=== PATIENT | male | born 1955 | race Caucasian/White ===

== ENCOUNTER → 2019-02-22 10:33 | Outpatient (CLI) | payer MEDICARE, SELFPAY ==
[2019-02-22 11:04] LABS: Basophils % 0.3 % (0.1-2.0); Eosinophils # 0.1 K/mm3 (0.0-0.4); Eosinophils % 1.1 % (0.1-12.0); Hematocrit 46.9 % (42.0-52.0); Hemoglobin 15.3 g/dL (14.1-18.0); Lymphocytes # 1.5 K/mm3 (0.7-4.5); Lymphocytes % 28.2 % (10-50); Mean Corpuscular HGB Conc 32.6 g/dL (31.8-35.4); Mean Corpuscular Hemoglobin 30.5 pg (27.0-31.2); Mean Corpuscular Volume 93.5 fl (80-94); Mean Platelet Volume 6.1 fl (7.4-10.4); Monocytes # 0.4 K/mm3 (0.1-1.0); Monocytes % 6.7 % (1.7-9.3); Neutrophils # 3.4 K/mm3 (1.8-7.8); Neutrophils % 63.7 % (37.0-80.0); Platelet Count 277 K/mm3 (142-424); Red Blood Count 5.01 M/mm3 (4.60-6.20); Red Cell Distribution Width 13.6 % (11.5-17.5); White Blood Count 5.3 K/mm3 (4.8-10.8)
[2019-02-22 11:57] LABS: Anion Gap 12.1 mEq/L (5-15); Blood Urea Nitrogen 15 mg/dL (7-18); Calcium 9.5 mg/dL (8.5-10.1); Carbon Dioxide 29 mmol/L (21.0-32.0); Chloride 104 mmol/L (98-107); Creatinine,Serum 1.21 mg/dL (0.70-1.30); Estimated Glomerular Filt Rate 60 ml/min (>60); GFR (African American) 73 ML/MIN (>60); Glucose 111 mg/dL (74-106); Potassium 4.1 mmoL/L (3.5-5.1); Sodium 141 mmol/L (136-145)
== END ==
PROVIDERS: Visit Provider Surgery
DX: K40.90 Unilateral inguinal hernia, without obstruction or gangrene, not specified as recurrent (principal)
CPT/HCPCS: 36415; 80048; 85025

== ENCOUNTER → 2019-03-09 09:47 | Outpatient (CLI) | payer MEDICARE, SELFPAY ==
--- NOTE | 2019-03-09 09:47 | CT_ITS ---
PROCEDURE: CT ABDOMEN PELVIS W CON CLINICAL HISTORY: left lower quad pain Left lower quadrant pain COMPARISON: No exams were available for comparison TECHNIQUE: 75 mL Optiray 350 Gastrografin p.o. Axial images obtained with sagittal and coronal reformats. All CT scans at the facility use one or more dose reduction, viz: automated exposure control, ma/kV adjustment per patient size (including targeted exams where dose is matched to indication, i.e. head), or iterative reconstruction technique. FINDINGS: Lung base images show coronary artery calcifications and a calcified granuloma in the right middle lobe. Normal heart size. Post cholecystectomy change. There is a moderate amount of retained colonic feces. The liver, spleen, adrenal glands, and pancreas have an unremarkable appearance. No renal or ureteral calculi. No hydronephrosis. No intestinal obstruction or free air. No evidence of appendicitis. There is moderate to severe thickening of the proximal sigmoid colon in the left lower quadrant with stranding of the pericolic fat consistent with diverticulitis. Contrast has not yet made it through the large bowel. There an unusual collection of gas within the sigmoid colon and may only be related to an unusual irregular appearance of the lumen of sigmoid colon. This could also represent a gas containing abscess within the wall of the sigmoid colon measuring 4 cm longitudinal and 1.4 cm transverse. Delayed imaging may be of further value once contrast has reached this region. No free intraperitoneal air is evident. There are small bilateral inguinal hernias which contain fat. There is mild thickening of the urinary bladder nonspecific but could be seen with cystitis or local inflammation. No acute bony findings. IMPRESSION: 1. Diverticulitis of the sigmoid colon. Unusual gas collection within the proximal sigmoid colon which may only be related to irregularity of the lumen with wall thickening versus a small intramural abscess. Consider follow-up once the contrast has made it through the large bowel for further evaluation. 2. Small bilateral inguinal hernias containing fat. 3. Possible cystitis Dictated by: Soy Jalloh MD 03/09/2019 14:59 Signed by: <Electronically signed by Soy Jalloh MD in [place]> 03/09/2019 14:59
[2019-03-09 10:17] LABS: Blood Urea Nitrogen 13 mg/dL (7-18); Estimated Glomerular Filt Rate 67 ml/min (>60); GFR (African American) 81 ML/MIN (>60)
== END ==
PROVIDERS: PCP Family Medicine; Visit Provider Surgery
DX: K40.20 Bilateral inguinal hernia, without obstruction or gangrene, not specified as recurrent (principal); K57.92 Diverticulitis of intestine, part unspecified, without perforation or abscess without bleeding
CPT/HCPCS: 36415; 74177; 82565; 84520; Q9967

== ENCOUNTER → 2019-03-09 10:00 | Outpatient (CLI) | payer MEDICARE, SELFPAY | PROVIDERS: Visit Provider Surgery | DX: Z01.818 Encounter for other preprocedural examination (principal) | CPT/HCPCS: 36415; 82565; 84520 ==

== ENCOUNTER → 2023-05-01 10:00 | Outpatient (CLI) | payer MEDICARE, SELFPAY ==
--- NOTE | 2023-05-01 10:01 | CT_ITS ---
FINAL REPORT CLINICAL HISTORY: left lower quad pain oral and iv COMPARISON: 03/09/2019 FINDINGS: Axial images through the pelvis were performed by computed tomography afther the administration of IV and oral contrast. Sagittal and coronal reconstruction images were performed. This study was performed with techniques to keep radiation doses as low as reasonably achievable (ALARA). Individualized dose reduction techniques using automated exposure control or adjustment of mA and/or kV according to the patient's size were employed. No acute fracture or dislocation identified. The appendix is normal. There is sigmoid diverticulosis. Mild urinary bladder wall thickening is seen which is likely inflammatory No free fluid or adenopathy is present. IMPRESSION: Mild urinary bladder wall thickening, likely inflammatory. Normal appendix. Reviewed, Interpreted and Dictated by Lars Laguerre III, MD Transcribed by Lety Siu Authenticated and [facility]
[2023-05-01 10:37] LABS: Blood Urea Nitrogen 17 mg/dl (9-20); Estimated Glomerular Filt Rate 60 ml/min (>60); GFR (African American) 72 ML/MIN (>60)
== END ==
PROVIDERS: PCP Family Medicine; Visit Provider Surgery
DX: R10.32 Left lower quadrant pain (principal)
CPT/HCPCS: 36415; 72193; 82565; 84520; Q9967

== ENCOUNTER 2025-05-26 12:20 | Outpatient (CLI) | payer MEDICARE, SELFPAY ==
--- OUTSIDE RECORDS SUMMARY | 2025-05-26 12:24 | XMS_ITS | Data Portability ---
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 Plan of Treatment Reminders Order Date Submit Date Provider Last Modified By Organization Details Last Modified Time Details Appointments None recorded . Lab PSA, total + free, serum or plasma 023 023 [facility], [address] [place] [address], [phone], 07:11:21 Referral None recorded . Procedures None recorded . Surgeries None recorded . Imaging None recorded . Medication Orders None recorded . Patient TargetsNo targets recorded. Patient Instructions Encounter Date Encounter Id Patient Instructions Last Modified By Organization Details Last Modified Time 03/04/2019 [id number] prostate biopsy: about this test [facility] Not available 03/08/2019 08:18:57 healthy together [facility] Not available 03/08/2019 08:18:57 at a long discussion today with the patient in regards to his elevated PSA. His PSA density and MRI are very reassuring and because of this we will follow conservatively with PSA free over total fraction in 4 months. We did talk about the potential need in the future for prostate biopsy. The patient is reluctant to have prostate biopsy. [facility] Not available 03/08/2019 08:19:36 Reason for Referral None Reported. Results Created Date Observation Date Name Description Value Unit Range Abnormal Flag Note LastModifiedBy Organization Detail LastModifiedTime 02/28/20 23 02/27/2023 PSA, TOTAL AND FREE prostate specific Ag 8.750 NG/mL 0.000- 4.400 high The % Free PSA ratio is usefu l as an aid in disti nguis raul prost ate cance r from benig n prost ate condi tions in men 50 years or older who have a digit al recta l exam that is not suspi cious for prost ate cance r and a Total PSA value in the range of 4.0 - 10.0. Pleas e notif y the lab at 258-4 150 withi n 24 hrs if add-o n testi ng of Free PSA is anaya ed. Test metho d is based on WHO-s tanda rdize d calib ratio n using the Lois Remi E801 grace zer. PSA resul ts by diffe rent test proce dures canno t be direc tly ornnie red with one anoth er. . Not Available [facility] [address] [place] [address], [phone], 02/27/2023 18:59:30 02/28/20 23 02/27/2023 PSA, TOTAL AND FREE free PSA 1.31 NG/mL normal Test metho d is based on WHO-s tanda rdize d calib ratio n using the Lois E801 grace zer. Free PSA resul ts by diffe rent test proce napoleon sahuo t be direc tly ronnie red with one anoth er. Not Available [facility] [address] [place] [address], [phone], 02/27/2023 18:59:30 02/28/20 23 02/27/2023 PSA, TOTAL AND FREE % free PSA 15 % normal ____ PSA ng/mL % FREE PSA Proba bilit y of Prost ate Cance r % ____ Less than 4.00 N/A 17% 4.0 - 10.0 0-10 56% 10-15 28% 15-20 20% 20-25 16% Great er than 25 8% Great er than 10.0 N/A 49% ____ Not Available [facility] [address] [facility], [place], [phone], 02/27/2023 18:59:30 04/02/20 19 02/04/2019 MRI, prost ate, w/wo contr ast No observ ation record ed. [address], [place], [address], 04/02/2019 16:10:46 03/30/20 23 03/28/2023 MRI, pelvi s, w/wo contr ast [facility] [address] [place] [address] [place] sanchez Name: JONAS sanchez : 1954 Elizabeth sanchez Orderi ng Provid er: EZRA HEALY [facility] EXAM DATE: 2022 EXAM: MR PELVIS ATTN PROSTA TE W/WO CONTRA ST CLINIC AL INFORM ATION: Elevat ed PSA. Negati ve prosta te MRI in 2019. TECHNI QUE: A baseli ne serum creati nine with eGFR was obtain ed prior to inject ion of contra st medium due to the patien ts risk factor s for KAYDEN. Calcul ated eGFR at time of exam was GRF 82 Tripla esperanza T2, axial DWI, ADC map, axial T1 pre- and dynami c postco ntrast -enhan diane images as well as axial T1 fat-sa t imagin g was perfor med after inject ion of 7.[address] (1 x 7.5 mL bottle of [facility] [address]- 325-01 ) IV. The patien t did not requir e sedati on for this exam. COMPAR LUIZ: Previo us MRI images are not availa ble for compar luiz. FINDIN GS: PROSTA TE SIZE MEASUR EMENTS : Prosta te dimens ions = 5.5 x 4.6 x 4.2 cm (T x AP x CC). QUALIT Y: Good PERIPH ERAL ZONE: Overal l, periph eral zone is normal in size and backgr ound signal charac terist ics. No suspic ious focal lesion is seen. TRANSI TION ZONE: Multip le, well deline ated encaps ulated nodule s are seen consis tent with BPH. A suspic ious focal lesion is seen as decibe d below. PI-RAD S catego ry = 4/5 locate d in left anteri or transi tion zone at the lower mid gland level. Measur ement = 14 mm. Seen best in image 17 of series 8001, 7006, 7007, and image 137 of series 29862. It is positi ve on T2 WI, ADC, DWI and DCE images . CAPSUL E AND NEIGHB ORING STRUCT URES: No capsul ar invasi on is identi fied. Neuro- vascul ar bundle s are normal bilate rally. Semina l vesicl es are normal . PELVIC LYMPH NODES: No pelvic lympha denopa thy. PELVIC BONES: No suspic ious osseou s lesion is seen. IMPRES PATTI: 1. Change s of BPH 2. PI RADS catego ry 4/5 lesion in the left anteri or transi tion zone as descri bed above. 3. No eviden ce of extra prosta tic extens ion. 4. Normal semina l vesicl es. Interp reted By: Fredy Simeon MD Electr onical ly Signed By: Fredy Simeon MD on 023 12:[email or web address] [facility] [address], [phone], 04/01/2023 10:21:57 04/15/20 23 03/28/2023 MRI, pelvi s, w/wo contr ast [address] [address] [place] NDUM #1 Pat[place] t Name: JONAS sanchez : 1954 Elizabeth sanchez Orderi ng Provid er: EZRA PEREZ EXAM DATE: 2022 EXAM: MR PELVIS ATTN PROSTA TE W/WO CONTRA ST ADDEND UM: At the reques t of the patien t Mr. Helm, outsid e prosta te MRI images of 019 were obtain ed and compar ed with the curren t examin ation of . Follow ing observ ations are made. 1. The suspic ious nodule seen on today' s examin ation in the left anteri or transi tion zone was presen t in the previo us examin ation also. Howeve r in the curren t examin ation, it has develo ped suspic ious imagin g featur es of T2 hyperi ntensi ty, diffus ion restri ction, and abnorm al enhanc ement, which were not presen t in the previo us examin ation. This change is worris ome for develo pment of malign ronal in a previo usly existi ng nodule in this area. 2. There is a right inguin al hernia repair mesh which is not close to the prosta te gland. 3. No hernia repair change s are seen on the left side. 4. I person ally called Mr. Helm on at 12:20 PM and discus sed the above findin gs with him. He inform ed me that he is going to get an outsid e second opinio n becaus e of a long and compli cated histor y of previo us hernia repair s. Interp reted By: Fredy Simeon MD Electr onical ly Signed By: Fredy Simeon MD on 12:29 PM ORIGIN AL REPORT Patipedrito t Name: JONAS sanchez : 1954 Elizabeth sanchez Orderi ng Provid er: EZRA HEALY [facility] EXAM DATE: 2022 EXAM: MR PELVIS ATTN PROSTA TE W/WO CONTRA ST CLINIC AL INFORM ATION: Elevat ed PSA. Negati ve prosta te MRI in 2019. TECHNI QUE: A baseli ne serum creati nine with eGFR was obtain ed prior to inject ion of contra st medium due to the patien ts risk factor s for KAYDEN. Calcul ated eGFR at time of exam was GRF 82 Tripla esperanza T2, axial DWI, ADC map, axial T1 pre- and dynami c postco ntrast -enhan diane images as well as axial T1 fat-sa t imagin g was perfor med after inject ion of 7.[address] (1 x 7.5 mL bottle of [facility] [address]- 325-01 ) IV. The patien t did not requir e sedati on for this exam. COMPAR LUIZ: Previo us MRI images are not availa ble for compar luiz. FINDIN GS: PROSTA TE SIZE MEASUR EMENTS : Prosta te dimens ions = 5.5 x 4.6 x 4.2 cm (T x AP x CC). QUALIT Y: Good PERIPH ERAL ZONE: Overal l, periph eral zone is normal in size and backgr ound signal charac terist ics. No suspic ious focal lesion is seen. TRANSI TION ZONE: Multip le, well deline ated encaps ulated nodule s are seen consis tent with BPH. A suspic ious focal lesion is seen as decibe d below. PI-RAD S catego ry = 4/5 locate d in left anteri or transi tion zone at the lower mid gland level. Measur ement = 14 mm. Seen best in image 17 of series 8001, 7006, 7007, and image 137 of series 91238. It is positi ve on T2 WI, ADC, DWI and DCE images . CAPSUL E AND NEIGHB ORING STRUCT URES: No capsul ar invasi on is identi fied. Neuro- vascul ar bundle s are normal bilate rally. Semina l vesicl es are normal . PELVIC LYMPH NODES: No pelvic lympha denopa thy. PELVIC BONES: No suspic ious osseou s lesion is seen. IMPRES PATTI: 1. Change s of BPH 2. PI RADS catego ry 4/5 lesion in the left anteri or transi tion zone as descri bed above. 3. No eviden ce of extra prosta tic extens ion. 4. Normal semina l vesicl es. Interp reted By: Fredy Simeon MD Electr onical ly Signed By: Fredy Simeon MD on 023 12:07 PM [facility] [address] [place] [address], [phone], 04/16/2023 08:51:41 Result Notes Documentation Provider Name and Address Organization Details Recorded Time Mri, Pelvis, W/wo Contrast : [address] [address] Patient Name: JONAS HELM Patient : 1955 Patient Ordering Provider: EZRA GARCIA JR EXAM DATE: 03/28/2023 EXAM: MR PELVIS ATTN PROSTATE W/WO CONTRAST CLINICAL INFORMATION: Elevated PSA. Negative prostate MRI in 2019. TECHNIQUE: A baseline serum creatinine with eGFR was obtained prior to injection of contrast medium due to the patients risk factors for KAYDEN. Calculated eGFR at time of exam was GRF 82 Triplanar T2, axial DWI, ADC map, axial T1 pre- and dynamic postcontrast-enhanced images as well as axial T1 fat-sat imaging was performed after injection of 7.5 mL Gadavist (1 x 7.5 mL bottle of [facility] [address]-441-19) IV. The patient did not require sedation for this exam. COMPARISON: Previous MRI images are not available for comparison. FINDINGS: PROSTATE SIZE MEASUREMENTS: Prostate dimensions = 5.5 x 4.6 x 4.2 cm (T x AP x CC). QUALITY: Good PERIPHERAL ZONE: Overall, peripheral zone is normal in size and background signal characteristics. No suspicious focal lesion is seen. TRANSITION ZONE: Multiple, well delineated encapsulated nodules are seen consistent with BPH. A suspicious focal lesion is seen as decibed below. PI-RADS category = 4/5 located in left anterior transition zone at the lower mid gland level. Measurement = 14 mm. Seen best in image 17 of series 8001, 7006, 7007, and image 137 of series 39950. It is positive on T2 WI, ADC, DWI and DCE images. CAPSULE AND NEIGHBORING STRUCTURES: No capsular invasion is identified. Neuro-vascular bundles are normal bilaterally. Seminal vesicles are normal. PELVIC LYMPH NODES: No pelvic lymphadenopathy. PELVIC BONES: No suspicious osseous lesion is seen. IMPRESSION: 1. Changes of BPH 2. PI RADS category 4/5 lesion in the left anterior transition zone as described above. 3. No evidence of extra prostatic extension. 4. Normal seminal vesicles. Interpreted By: Danilo Simeon MD [facility] 04/01/2023 10:21:57 Mri, Pelvis, W/wo Contrast : [facility] [address] [place] [address] ADDENDUM #1 Patient Name: JONAS HELM Patient : 1955 Patient Ordering Provider: EZRA GARCIA JR EXAM DATE: 03/28/2023 EXAM: MR PELVIS ATTN PROSTATE W/WO CONTRAST ADDENDUM: At the request of the patient Mr. Helm, outside prostate MRI images of 02/04/2019 were obtained and compared with the current examination of 03/28/2023. Following observations are made. 1. The suspicious nodule seen on today's examination in the left anterior transition zone was present in the previous examination also. However in the current examination, it has developed suspicious imaging features of T2 hyperintensity, diffusion restriction, and abnormal enhancement, which were not present in the previous examination. This change is worrisome for development of malignancy in a previously existing nodule in this area. 2. There is a right inguinal hernia repair mesh which is not close to the prostate gland. 3. No hernia repair changes are seen on the left side. 4. I personally called Mr. Helm on 04/15/2023 at 12:20 PM and discussed the above findings with him. He informed me that he is going to get an outside second opinion because of a long and complicated history of previous hernia repairs. Interpreted By: Danilo Simeon MD ORIGINAL REPORT Patient Name: JONAS HELM Patient : 1955 Patient Ordering Provider: EZRA GARCIA JR EXAM DATE: 03/28/2023 EXAM: MR PELVIS ATTN PROSTATE W/WO CONTRAST CLINICAL INFORMATION: Elevated PSA. Negative prostate MRI in 2019. TECHNIQUE: A baseline serum creatinine with eGFR was obtained prior to injection of contrast medium due to the patients risk factors for KAYDEN. Calculated eGFR at time of exam was GRF 82 Triplanar T2, axial DWI, ADC map, axial T1 pre- and dynamic postcontrast-enhanced images as well as axial T1 fat-sat imaging was performed after injection of 7.5 mL Gadavist (1 x 7.5 mL bottle of [facility] [id number]) IV. The patient did not require sedation for this exam. COMPARISON: Previous MRI images are not available for comparison. FINDINGS: PROSTATE SIZE MEASUREMENTS: Prostate dimensions = 5.5 x 4.6 x 4.2 cm (T x AP x CC). QUALITY: Good PERIPHERAL ZONE: Overall, peripheral zone is normal in size and background signal characteristics. No suspicious focal lesion is seen. TRANSITION ZONE: Multiple, well delineated encapsulated nodules are seen consistent with BPH. A suspicious focal lesion is seen as decibed below. PI-RADS category = 4/5 located in left anterior transition zone at the lower mid gland level. Measurement = 14 mm. Seen best in image 17 of series 8001, 7006, 7007, and image 137 of series 31138. It is positive on T2 WI, ADC, DWI and DCE images. CAPSULE AND NEIGHBORING STRUCTURES: No capsular invasion is identified. Neuro-vascular bundles are normal bilaterally. Seminal vesicles are normal. PELVIC LYMPH NODES: No pelvic lymphadenopathy. PELVIC BONES: No suspicious osseous lesion is seen. IMPRESSION: 1. Changes of BPH 2. PI RADS category 4/5 lesion in the left anterior transition zone as described above. 3. No evidence of extra prostatic extension. 4. Normal seminal vesicles. Interpreted By: Danilo Simeon MD GARCIA JR, MD [address] [place] [address], [phone], [facility] 04/16/2023 08:51:41 Problems Name Problem SNOMED Code Status Onset Date Resolution Date Notes Provider Name and Address Organization Details Recorded Time Prostate specific antigen above reference range 379618608 Active 2022 EZRA GARCIA JR, MD [address] [place] [address], [phone] [place] [address] 3 16:55:46 Lower urinary tract symptoms due to benign prostatic hypertrophy 4653059076244 1 Active 2022 EZRA GARCIA JR, MD [address] [place] [address], [phone], [facility] 3 16:55:48 Problem Notes None recorded. Procedures Surgical History Date Name Laterality Status Provider Name and Address Organization Details Recorded Time Hernia Repair completed [facility] 03/04/2019 10:47:30 Cholecystectomy completed [facility] 03/04/2019 10:47:38 procedure on shoulder completed [facility] 03/04/2019 10:48:14 Unlisted px hands/fingers completed [facility] 03/04/2019 10:48:30 Imaging Results None recorded. Procedure Notes None recorded. Medical Equipment None Reported. Allergies Allergen ID Allergen Name Allergen Category Reaction Reaction Severity Criticality Documentation Date Start Date Code Code System Note Provider Name and Address Organization Details Recorded Time 182857 acetamino phen / hydrocodo ne medicatio n itching moderate Not available 06/07/20162006 65323 2 RxNorm React ion: ITCHI NG;Se verit y: Moder ate; Comme nt: Creat ed By: Liplatisha rt Ewelina ;Samantha rubi Date: 007 9:12: 47 AM; Not Available [facility] 6 03:03:34 Medications Name Sig Start Date Stop Date Status Note LastModified by Organization Details LastModified Time amoxicill in 500 mg capsule TAKE 1 CAPSULE BY MOUTH TWICE A DAY 03/05 completed Not Available Not Available Not Available metformin 500 mg tablet 03/05 completed Not Available Not Available Not Available triamcino lone acetonide 0.5 % topical cream APPLY THIN COAT TO AFFECTED AREA(S) 1-2 TIMES A DAY NEEDED active Not Available Not Available No t Available lisinopri l 20 mg-hydroc hlorothia zide 12.5 mg tablet TAKE 1 TABLET BY MOUTH EVERY DAY active Not Available Not Available No t Available azithromy kayden 250 mg tablet TAKE 2 TABLETS BY MOUTH TODAY, THEN TAKE 1 TABLET DAILY FOR 4 DAYS 03/05 completed Not Available Not Available Not Available ibuprofen 800 mg tablet TAKE 1 TABLET BY MOUTH THREE TIMES A DAY WITH FOOD NEEDED 03/05 completed Not Available Not Available Not Available metronida zole 500 mg tablet 03/05 completed Not Available Not Available Not Available sulfameth oxazole 800 mg-trimet hoprim 160 mg tablet 03/04 completed Not Available Not Available Not Available prednison e 10 mg tablets in a dose pack TAKE 6 TABLETS ON DAY 1 DIRECTED ON PACKAGE AND DECREASE BY 1 TAB EACH DAY FOR A TOTAL OF 6 DAYS 03/05 completed Not Available Not Available Not Available amoxicill in 875 mg tablet 03/04 completed Not Available Not Available Not Available amlodipin e 10 mg tablet TAKE 1 TABLET BY MOUTH EVERY DAY active Not Available Not Available No t Available cefuroxim e axetil 500 mg tablet Take 1 tablet every 12 hours by oral route. active Not Available Not Available No t Available cefdinir 300 mg capsule 03/05 completed Not Available Not Available Not Available fluticaso ne propionat e 50 mcg/actua tion nasal spray,kelly pension SPRAY 1 SPRAY INTO EACH NOSTRIL EVERY DAY FOR 30 DAYS 03/05 completed Not Available Not Available Not Available amoxicill in 500 mg-potass ium clavulana te 125 mg tablet 03/04 completed Not Available Not Available Not Available chlorhexi dine gluconate 0.12 % mouthwash BRUSH WITH 1 CAPFUL AND SPIT TWICE DAILY UNTIL GONE 03/05 completed Not Available Not Available Not Available lisinopri l 03/05 completed Medicati on Descript ion: lisinopr il; Route:or al; refills: 0 Not Available Not Available Not Available Vitals Date Recorded Body weight Heart rate Systolic And Diastolic Provider Name and Address Organization Details Last Updated DateTime 02/06/2024 23769.51 g 74 /min 142/70 mm[Hg] Mallorie Azar [facility] 02/06/2024 13:47:57 Date Recorded Body height Body mass index (BMI) Body weight Heart rate Systolic And Diastolic Provider Name and Address Organization Details Last Updated DateTime 03/04/2019 177.8 cm 23 kg/m2 39829.78 g 66 /min 177/79 mm[Hg] Sophia Triplett [facility] 03/04/2019 10:46:21 Social History Question Answer Notes LastModified by Organizat ion Details LastModified Time Tobacco Smoking Status Never Smoker [facility] 03/04/2019 10:47:10 How Much Tobacco Do You Chew? None Information not available 03/04/2019 Marital Status [email or web address] Informatio n not available 03/04/2019 What Was The Date Of Your Most Recent Tobacco Screening? 02/06/2024 [email or web address] Information not available 02/06/2024 Sex: Unknown Functional Status Question Answer Note LastModified by Organization D etails LastModified Time What is your level of alcohol consumption? None Information not available 03/04/2019 Mental Status None recorded. Family History Relationship Description Onset Age of this Age Resolved Age Notes LastModified by Organization Details LastModified Time Mother Family history of malignant neoplasm [email or web address] Not available 2018 10:46:59 Medical History Condition Response Acid Reflux (GERD) Y High Cholesterol Y False Teeth Y Past Encounters Encounter ID Performer Location Encounter Start Date Encounter Closed Date Diagnosis/Indication Diagnosis SNOMED-CT Code Diagnosis ICD10 Code Diagnosis IMO Codes Diagnosis Note [id number] EZRA GARCIA JR, MD [facility] [address] [address] 03/04/2019 09:58:45 03/04/2019 11:25:09 Benign prostatic hyperplasia with outflow obstruction 778004125 N40.1 Prostate s pecific antigen above reference range 555700190 R97.20 [id number] MD BURTON PABLO JR, [facility] [address] [place] [address] 02/27/2023 13:03:05 02/27/2023 14:14:35 Prostate specific antigen above reference range 827118598 R97.20 Lower urin octavio tract symptoms due to benign prostatic hypertrophy 9390071233 9101 N40.1 [id number] FERNANDO SALINAS APRN [facility] [address] [place] [address] 02/06/2024 13:37:28 02/06/2024 14:45:12 Essential hypertension 25245139 I10 Goal BP less than 140/90BP in office today 142/70Cont inue current daily lisinopril -hydrochlo rothiazide , amlodipine as prescribed by PCP.Contin ue BP monitoring at home. Prediabetes 936016912 R7 3.03 A1c from labs on November 25, 2023 was 6.4%. In the office today A1c 6.2%.Can [place] point-of-c are blood glucose of 132 in the office today.Amy ent states that he currently only eats one meal a day, after which time his blood sugar increases to 180-200. He denies any symptoms or episodes of hypoglycem ia. Goal A1c is less than 7%Goal blood glucose: Before meals and upon awakenin-130. 1-2 After meals or at bedtime: < 180. Discussed in detail the consequenc es of uncontroll ed hyperglyce dominik in the form of microvascu lar complicati ons such as diabetic retinopath y, worsening of diabetic nephropath y, diabetic neuropathy and macrovascu lar complicati ons such as coronary artery disease, peripheral arterial disease and stroke.Edu cated on the importance of dietary carbohydra te consistenc y and restrictio n and not to exceed 45 g of carbohydra te per meal and 15-30 g per snack if needed.Edu cated on signs and symptoms of hypoglycem ia, and what to do if patient is effected by it including: Blood glucose less than 70, drink 6 ounces of soda/juice , glucose and recheck 15 minutes later. If blood glucose still less than 70 repeat until above 70. Once greater than 70 follow-up with bailey. Labs from November 25, 2023 show:GFR 71AST 18ALT 21TSH 3.84 Recommenda tions:Diet octavio ConsultMet formin 500mg ER twice a day Patient refuses the above recommenda tion stating that medicatio n end up making you worse and he already has is diet under control . Reiterated with patient the need to eat more small frequent meals as opposed to 1 meal a day. Patient refuses recommenda tion. Health Concerns Section Related Observation LastModified by Organization Detai ls LastModified Time None Recorded Concern Status LastModified by Organization Details LastModified Time None Recorded Advance Directives Directive None Recorded Payers Insurance Date Sequence Insurance Name Policy Number Policy Jules Covered Member ID Jules Member ID Guarantor Name 02/03/2024 1 [place]MEDICARE REPLACEMENT REGIONAL PPO) [id number] Jonas Helm [id number] Jonas Helm 02/27/2023 1 [id number] (MEDICARE REPLACEMENT/AD VANTAGE - PPO) Jonas Helm [id number] Jonas Helm Notes Date Note Type Note Provider Name and Address Organization Details Recorded Time 03/04/2019 text/html patient is in today for evaluation of elevated PSA. He is a pleasant 63-year-old gentleman who has been evaluated in the past for elevated PSA and thus far has not undergone prostate biopsy. PSA in December 2018 is 7.7. PSA has been rising significantly over the past 1-1/2 years. The patient does not have significant lower urinary tract symptoms. He denies hematuria. He denies family history of prostate cancer. He was treated for prostatitis but has persistent elevated PSA. MRI of the prostate was performed February 04, 2019 without any significant lesions, category 2 study. EZRA GARCIA JR, MD [address] [place] [address], [phone], [facility] 03/08/2019 08:19:57 02/27/2023 text/html patient is in today for evaluation of elevated PSA. He is a pleasant 63-year-old gentleman who has been evaluated in the past for elevated PSA and thus far has not undergone prostate biopsy. PSA in December 2018 is 7.7. PSA has been rising significantly over the past 1-1/2 years. The patient does not have significant lower urinary tract symptoms. He denies hematuria. He denies family history of prostate cancer. He was treated for prostatitis but has persistent elevated PSA. MRI of the prostate was performed February 04, 2019 without any significant lesions, category 2 study. PSA at 6.89 December 25, 2022 EZRA GARCIA JR, MD [address] [place], [phone], [facility] 03/02/2023 16:56:17 02/06/2024 text/html ROS as noted in the HPI Jonas is a 68-year-old male presents office after referral for diabetes management. Patient is very agitated at today's visit and upon every question/recommenda tion he states refusal. Patient is currently taking medication for high blood pressure which was controlled at today's visit. FERNANDO SALINAS, MADELAINE [address] [place], [address], [facility] 02/06/2024 14:24:08
--- OUTSIDE RECORDS SUMMARY | 2025-05-26 12:24 | XMS_ITS | Data Portability ---
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 Plan of Treatment Reminders Order Date Submit Date Provider Last Modified By Organization Details Last Modified Time Details Appointments None recorded. Lab rapid strep group A, throat 2021 022 [email or web address] [facility], [address] [place] [address], [address], [place], [address], 15:56:53 Referral None recorded. Procedures None recorded. Surgeries None recorded. Imaging None recorded. Medication Orders cefdinir 300 mg capsule 2021 [id number], [address], [place], [address], 15:56:55 Patient TargetsNo targets recorded. Patient Instructions Encounter Date Encounter Id Patient Instructions Last Modified By Organization Details Last Modified Time 04/20/2022 [id number] sore throat: car e instructions [email or web address] Not available 04/20/2022 15:56:53 Reason for Referral None Reported. Results Created Date Observation Date Name Description Value Unit Range Abnormal Flag Note LastModifiedBy Organization Detail LastModifiedTime 04/20/2004/20/2022 rapid strep group A, throa t Strep negati ve Not Available [address], [place], [address], 04/20/2022 15:45:36 Result Notes None recorded. Problems Name Problem SNOMED Code Status Onset Date Resolution Date Notes Provider Name and Address Organization Details Recorded Time Herpes zoster 0993461 Active 022 Problem Code: B02.9; Problem Code Type: ICD-10; Not Available [facility] 22:53:30 Problem Notes None recorded. Medical Equipment None Reported. Allergies Allergen ID Allergen Name Allergen Category Reaction Reaction Severity Criticality Documentation Date Start Date Code Code System Note Provider Name and Address Organization Details Recorded Time 59562 acetamino phen / hydrocodo ne medicatio n Not available Not available Not available 04/20/202201942 2 RxNorm MELINA [employer] [place] [employer] [facility] [employer]. 15:43:29 79912 acetamino phen / oxycodone medicatio n Not available Not available Not available 04/20/202298556 3 RxNorm MELINA [employer] [place] [employer] Rick[facility]li[facility]. 15:43:36 Medications Name Sig Start Date Stop Date Status Note LastModified by Organization Details LastModified Time prednisone 10 mg tablet ORAL TAPERING DAILY DOSE OUTLINED: 5,5,4,4,3 ,3,2,2,1, 1 04/20 completed Not Available Not Available Not Available triamcinolo ne acetonide 0.5 % topical cream APPLY THIN COAT TO AFFECTED AREA 1-2 TIMES A DAY NEEDED 04/20 completed Not Available Not Available Not Available lisinopril 20 mg-hydrochl orothiazide 12.5 mg tablet TAKE 1 TABLET BY MOUTH EVERY DAY active Not Available Not Available No t Available azithromyci n 250 mg tablet TAKE 2 TABLETS BY MOUTH TODAY, THEN TAKE 1 TABLET DAILY FOR 4 DAYS active Not Available Not Available No t Available valacyclovi r 1 gram tablet TAKE 1 TABLET BY MOUTH THREE TIMES A DAY FOR 7 DAYS 04/20 completed Not Available Not Available Not Available metronidazo le 500 mg tablet TAKE 1 TABLET BY MOUTH 3 TIMES A DAY X 10 DAYS TO TREAT BOWEL INFECTION 04/20 completed Not Available Not Available Not Available ciprofloxac in 250 mg tablet TAKE 2 TABLETS BY MOUTH TWICE A DAY FOR 10 DAYS 04/20 completed Not Available Not Available Not Available prednisone 10 mg tablets in a dose pack TAKE 6 TABLETS ON DAY 1 DIRECTED ON PACKAGE AND DECREASE BY 1 TAB EACH DAY FOR A TOTAL OF 6 DAYS active Not Available Not Available No t Available amlodipine 10 mg tablet TAKE 1 TABLET BY MOUTH EVERY DAY active Not Available Not Available No t Available cefdinir 300 mg capsule Take 1 capsule every 12 hours by oral route for 10 days. active Not Available Not Available No t Available fluticasone propionate 50 mcg/actuati on nasal spray,suspe nsion SPRAY 1 SPRAY INTO EACH NOSTRIL EVERY DAY FOR 30 DAYS active Not Available Not Available No t Available Vitals Date Recorded Body weight Body mass index (BMI) Body height Body temperature Oxygen saturation Oxygen saturation in Arterial blood by Pulse oximetry Heart rate Provider Name and Address Organization Details Last Updated DateTime 2 35333.3 7 g 27 kg/m2 177.8 cm 98.8 [degF] 92 % 92 % 88 /min [facility] [employer] [place] [employer] 2 15:43:11 Social History None recorded. Functional Status Question Answer Note LastModified by Organizat ion Details LastModified Time Do you use any illicit or recreational drugs? [facility] Information not available 04/20/2022 What is your level of alcohol consumption? None [place] [address] Information not available 04/20/2022 Mental Status None recorded. Family History Nothing Reported Notes:*Procedure Description : Documented family medical history in father*Relative: Father *Procedure Description: Family medical history unremarkable*Relative: Unspecified Relation *Problem: Relative: ''; Medical History Condition Response Other Y Hypertension Y Past Encounters Encounter ID Performer Location Encounter Start Date Encounter Closed Date Diagnosis/Indication Diagnosis SNOMED-CT Code Diagnosis ICD10 Code Diagnosis IMO Codes Diagnosis Note [id number] Laura Carbajal APRN [facility] [address] [facility],[address] [address] 04/20/2022 15:09:51 04/20/2022 16:02:48 Sore throat 193081757 J02.9 Health Concerns Section Related Observation LastModified by Organization Detai ls LastModified Time None Recorded Concern Status LastModified by Organization Details LastModified Time None Recorded Advance Directives Directive None Recorded Payers Insurance Date Sequence Insurance Name Policy Number Policy Jules Covered Member ID Jules Member ID Guarantor Name 09/23/2022 [place] vel[employer]FF[place]IE [employer] [facility] Jonas Rayae [id number] Jonas Ray Ravinder 09/23/2022 [place] Jonas Rayae [id number] Jonas Ray Ravinder 04/28/2022 1 [place]MED[place]ACEMENT HMO) [id number] Jonas Raquel Rayae [id number] Jonas Jon Rayae 04/28/2022 1 [place] [id number] Jonas Ray Ravinder [id number] Jonas Ray Ravinder Notes Date Note Type Note Provider Name and Address Organization Details Recorded Time 04/20/2022 text/html Sore ThroatRepor rubi by PatientHPIFor quality, patient reportsburning. For location, patient reportsleft side. For duration, patient reportsstarted 1 day(s) ago. For severity, patient reportsno change. For context, patient reportsno recent travel,no tick/insect bites, andno one else with similar symptoms. For associated symptoms, patient reportsno fever,no cough,no dysphagia, andno choking.Started with sore throat yesterday states he feels like his L tonsil is swollen, denies ear pain, fever cough, or ill contactsROS as noted in the HPI Laura Carbajal APRN [address] [facility], [place], [address], [place] [facility] 04/20/2022 15:59:23
--- OUTSIDE RECORDS SUMMARY | 2025-05-26 12:24 | XMS_ITS | Clinical Summary ---
Author Organization Healthcare Address 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 11/03/2024 Family History Medical History Relation Name Comments Stroke Father Cancer Mother Relation Name Status Comments Father Mother Social History Tobacco Use Types Packs/Day Years Used Date Smoking Tobacco: Never Smokeless Tobacco: Never Tobacco Cessation:Counseling Given: Not Answered Sex and Gender Information Value Date Recorded Sex Assigned at Not on file Legal Sex Male 8:23 PM EDT Gender Identity Not on file Sexual Orientation Not on file Plan of Treatment Health Maintenance Due Date Last Done Comments [facility]-Depression Screening 1953 [facility]-Diabetes: Hemoglobin A1C 1953 [facility]-Hepatitis C Screening 1955 [facility]-Medicare Annual Wellness (AWV) 1955 [facility]-Infant/Child/Adol SDOH Screenings 1953 Diabetes: Dental Exam 1963 [facility]- SDOH Screenings 1971 [facility]-Adult SDOH Screenings 1971 [facility]-DTaP,Tdap,and Td Vaccine s (1 - Tdap) 1972 [facility]-Pneumococcal Vaccine: 50 + Years (1 of 2 - PCV) 1972 CT Colonography 1998 Colonoscopy 1998 FIT-DNA 1998 FIT 1998 FOBT 1998 Sigmoidoscopy 1998 [facility]-Colorectal Cancer Screening 1998 [facility]-Zoster Vaccines (1 of 2) 2003 [id number] Vaccine (1 - 20 24-25 season) 2025 [facility]-Influenza Vaccine (#1) 2025 [facility]-RSV Vaccine: 60+ Years o r (1 - 1-dose 75+ series) 2028 HPV Vaccines Aged Out No longer eligi ble based on patient's age to complete this topic [facility]-HIB Vaccines Aged Out No longer e ligible based on patient's age to complete this topic [facility]-Hepatitis A Vaccines Aged Out No longer eligible based on patient's age to complete this topic [facility]-IPV Vaccines Aged Out No longer e ligible based on patient's age to complete this topic [facility]-Rotavirus Vaccines Aged Out No lo nger eligible based on patient's age to complete this topic Insurance ANTHEM MEDICARE
--- NOTE | 2025-05-26 12:32 | XR_ITS ---
FINAL REPORT CLINICAL HISTORY: right shoulder pain COMPARISON: None FINDINGS: Two views of the right shoulder show no evidence of acute displaced fracture or dislocation of the visualized bony architecture. There are severe degenerative changes of the glenohumeral joint. There is complete loss of the acromial humeral interval which is more commonly seen with severe rotator cuff disease. There is a loose body in the inferior axillary recess measuring 8 mm. IMPRESSION: Advanced degenerative changes with probable underlying rotator cuff disease. Reviewed, Interpreted and Dictated by Troy Irizarry MD Transcribed by Jeanie Hong Authenticated and [facility]
== END 2025-05-26 23:59 | disposition home or self-care (01) ==
LOC: RAD 12:22
PROVIDERS: PCP Family Medicine; Visit Provider Physician Assistant
DX: M19.011 Primary osteoarthritis, right shoulder (principal)
CPT/HCPCS: 73030